=== PATIENT | male | born 1990 | race Caucasian/White ===

== ENCOUNTER → 2020-08-08 | Outpatient (CLI) | payer OTHER ==
--- NOTE | 2020-08-08 14:06 | RAD ---
AP and Lateral Views of the Chest 08/08/2020 1:50 PM Indication: Reason: VIRAL UPPER RESPIRATORY ILLNESS. / Spl. Instructions: / History: Comparison: None Findings: There is no focal consolidation or infiltrate identified. The cardiomediastinal silhouette is within normal limits. There is no evidence of pneumothorax or pleural effusion. No acute osseous a bnormalities are identified. Impression: No evidence of acute cardiopulmonary process. Electronically signed by: Austin Jackson MD (08/08/2020 2:03 PM) [id number]
== END ==
LOC: RAD 13:43
PROVIDERS: ATTEND Nurse Practitioner Family
DX: J06.9 Acute upper respiratory infection, unspecified (principal)
CPT/HCPCS: 71046